=== PATIENT | female | born 1990 | race Caucasian/White ===

== ENCOUNTER 2016-11-14 19:48 | Emergency (ER) | payer SELFPAY ==
[2016-11-14 20:00] VITALS: BP 119/80; PULSE 83; TEMP 98; BMI 25.7
--- NOTE | 2016-11-14 20:19 | PDOC ---
History of Present Illness - General History Source: Patient Exam Limitations: No Limitations - History of Present Illness Initial Comments: 11/14/16 20:27 The patient is a 26 year old female with no significant pas medical history who presents to the ED s/p right knee injury earlier today. The patient reports she was jumping on a trampoline in a trampoline park in [place] when her right knee snapped. The patient states she felt her right knee pop out and pop in again . Patient now comes into the ED with complaint of right thigh pain radiating to her right knee. Patient states her last menstrual period was on October 20. Patient has the control implant. Denies fevers or chills. Denies dysuria or changes in urinary output. Denies chest pain or shortness of breath. Denies any other symptoms. Surgical hx: x 2 <Timmy Bautista - Last Filed: 11/14/16 20:27> <Erin Elmore - Last Filed: 11/15/16 03:55> - General Chief Complaint: Injury Stated Complaint: INJURY Time Seen by Provider: 11/14/16 20:09 Past History <Timmy Bautista - Last Filed: 11/14/16 20:27> - Past Medical History Asthma: No Cancer: No Cardiac Disorders: No Diabetes: No HTN: No Seizures: No Thyroid Disease: No - Psycho/Social/Smoking Cessation Hx Anxiety: No Suicidal Ideation: No Smoking History: Never smoked Have you smoked in the past 12 months: No Hx Alcohol Use: No Drug/Substance Use Hx: No Substance Use Type: None Hx Substance Use Treatment: No <Erin Elmore - Last Filed: 11/15/16 03:55> - Past Medical History Allergies/Adverse Reactions: Allergies Allergy/AdvReac Type Severity Reaction Status Date / Time No Known Allergies Allergy Verified 11/14/16 19:59 Home Medications: Ambulatory Orders NK [No Known Home Medication] 11/14/16 Review of Systems - Review of Systems Able to Perform ROS?: Yes Comments:: 11/14/16 20:27 CONSTITUTIONAL: Absent: fever, chills, diaphoresis, generalized weakness, malaise, loss of appetite HEENT: Absent: rhinorrhea, nasal congestion, throat pain, throat swelling, difficulty swallowing, mouth swelling, ear pain, eye pain, visual Changes CARDIOVASCULAR: Absent: chest pain, syncope, palpitations, irregular heart rate, lightheadedness , peripheral edema RESPIRATORY: Absent: cough, shortness of breath, dyspnea with exertion, orthopnea, wheezing, stridor, hemoptysis GASTROINTESTINAL: Absent: abdominal pain, abdominal distension, nausea, vomiting, diarrhea, constipation, melena, hematochezia GENITOURINARY: Absent: dysuria, frequency, urgency, hesitancy, hematuria, flank pain, genital pain MUSCULOSKELETAL: + right knee injury SKIN: Absent: rash, itching, pallor HEMATOLOGIC/IMMUNOLOGIC: Absent: easy bleeding, easy bruising, lymphadenopathy, frequent infections ENDOCRINE: Absent: unexplained weight gain, unexplained weight loss, heat intolerance, cold intolerance NEUROLOGIC: Absent: headache, focal weakness or paresthesias, dizziness, unsteady gait, seizure, mental status changes, bladder or bowel incontinence PSYCHIATRIC: Absent: anxiety, depression, suicidal or homicidal ideation, hallucinations. All Other Systems: Reviewed and Negative <Timmy Bautista - Last Filed: 11/14/16 20:27> *Physical Exam - Vital Signs Last Vital Signs Temp Pulse Resp BP Pulse Ox 98 F 83 18 119/80 99 11/14/16 19:57 11/14/16 19:57 11/14/16 19:57 11/14/16 19:57 11/14/16 19:57 - Physical Exam Comments: 11/14/16 20:27 GENERAL: Well developed, well nourished. Awake and alert. No acute distress. HEENT: Normocephalic, atraumatic. PERRLA, EOMI. No conjunctival pallor. Sclera are non- icteric. Moist mucous membranes. Oropharynx is clear. NECK: Supple. Full ROM. No JVD. Carotid pulses 2+ and symmetric, without bruits. No thyromegaly. NCo lymphadenopathy. CARDIOVASCULAR: Regular rate and rhythm. No murmurs, rubs, or gallops. Distal pulses are 2+ and symmetric. PULMONARY: No evidence of respiratory distress. Lungs clear to auscultation bilaterally. No wheezing, rales or rhonchi. ABDOMINAL: Soft. Non-tender. Non-distended. No rebound or guarding. No organomegaly. Normoactive bowel sounds. MUSCULOSKELETAL Normal range of motion at all joints. No bony deformities or tenderness. No CVA tenderness. EXTREMITIES:+ More ligament laxity at the anterior drawer on the right knee. No cyanosis. No clubbing. No edema. No calf tenderness. SKIN: Warm and dry. Normal capillary refill. No rashes. No jaundice. NEUROLOGICAL: Alert, awake, appropriate. Cranial nerves 2-12 intact. No deficits to light touch and temperature in face, upper extremities and lower extremities. No motor deficits in the in face, upper extremities and lower extremities. Normoreflexic in the upper and lower extremities. Normal speech. Toes are down- going bilaterally. Gait is normal without ataxia. PSYCHIATRIC: Cooperative. Good eye contact. Appropriate mood and affect. <Timmy Bautista - Last Filed: 11/14/16 20:27> - Vital Signs Last Vital Signs Temp Pulse Resp BP Pulse Ox 98 F 83 18 119/80 99 11/14/16 19:57 11/14/16 19:57 11/14/16 19:57 11/14/16 19:57 11/14/16 19:57 <Erin Elmore - Last Filed: 11/15/16 03:55> ED Treatment Course - Medications Given in the ED: ED Medications Discontinued Medications Generic Name Dose Route Start Last Admin Trade Name Freq PRN Reason Stop Dose Admin Ibuprofen 600 mg 11/14/16 20:20 11/14/16 20:21 Motrin - PO 11/14/16 20:21 600 mg ONCE ONE Administration <Timmy Bautista - Last Filed: 11/14/16 20:27> - RADIOLOGY Radiology Studies Ordered: Category Date Time Status KNEE 2 POS-RIGHT [RAD] Stat Radiology 11/14/16 20:09 Ordered <Erin Elmore - Last Filed: 11/15/16 03:55> Medical Decision Making - Medical Decision Making 11/15/16 03:53 [place] [employer] [place] and injured her right knee, She heard a pop. She has no swelling. XR femur and knee on the right are normal. Pt has a slightly looser anterior drawer test on the right than on the left. Pt will be placed in a knee immobilizer and she will be referred to [facility] for follow up. Diagnosis: knee sprain <Erin Elmore - Last Filed: 11/15/16 03:55> *DC/Admit/Observation/Transfer - Attestations Scribe Attestion: 06/10/17 20:27 Documentation prepared by Timmy Bautista, acting as medical technologist microbiology for Erin Elmore MD <Timmy Bautista - Last Filed: 11/14/16 20:27> - Discharge Dispostion Admit: No <Erin Elmore - Last Filed: 11/15/16 03:55> Diagnosis at time of Disposition: Knee buckling - Discharge Dispostion Disposition: HOME Condition at time of disposition: Stable - Referrals Referrals: Kylah Skelton MD [Primary Care Provider] - Nevilel Delaney MD [Staff Physician] - - Patient Instructions Printed Discharge Instructions: Knee Sprain Additional Instructions: Motrin Over the Counter for pain
[2016-11-14] MEDS ORDERED: IBUPROFEN 600 MG TABLET (FP) PO ONE ×2 (20:20→20:23)
== END 2016-11-14 22:00 | disposition home or self-care (01) ==
LOC: JERFT 19:48 → JER 19:48
PROC: 2W3LX1Z Immobilization of Right Lower Extremity using Splint (ICD-10-PCS; principal; 2016-11-14)
DX: M62.81 Muscle weakness (generalized) (principal); X58.XXXA Exposure to other specified factors, initial encounter; Y93.44 Activity, trampolining; Y92.9 Unspecified place or not applicable
CPT/HCPCS: 73552-TC-RT; 73560-TC-RT; 99281-25

== ENCOUNTER 2021-11-08 12:19 | Emergency (ER) | payer OTHER ==
[2021-11-08 12:44] VITALS: BP 126/98; PULSE 94; TEMP 98.1; BMI 27.4
[2021-11-08] MEDS ORDERED: ONDANSETRON *ODT* 4 MG TABLET SL ONE (14:00)
[2021-11-08] MEDS ORDERED: MAG HYDROX/AL HYDROX/SIMETH 30 ML UNIT-DOSE CUP PO ONE (14:00)
[2021-11-08] MEDS ORDERED: FAMOTIDINE 20 MG TABLET PO ONE (14:00)
[2021-11-08] MEDS ORDERED: MAG HYDROX/AL HYDROX/SIMETH 30 ML UNIT-DOSE CUP ONE (14:17)
[2021-11-08] MEDS ORDERED: FAMOTIDINE 20 MG TABLET ONE (14:17)
[2021-11-08] MEDS ORDERED: ONDANSETRON *ODT* 4 MG TABLET ONE (14:17)
[2021-11-08 15:14] LABS: HEMATOCRIT 36.5 % (32.4-45.2); HEMOGLOBIN 12.3 GM/dL (10.7-15.3); MCH 29.9 pg (25.7-33.7); MCHC 33.7 g/dl (32.0-36.0); MEAN CELL VOLUME 88.8 fl (80-96); MEAN PLT VOLUME 9.4 fl (7.5-11.1); PLATELET COUNT 269 10^3/uL (134-434); RBC 4.11 M/mm3 (3.60-5.2); RDW 13.7 % (11.6-15.6); WHITE BLOOD COUNT 10.8 K/mm3 (4.0-10.0)
[2021-11-08 15:51] LABS: ALBUMIN 4.1 g/dl (3.4-5.0); BLOOD UREA NITROGEN 14.8 mg/dL (7-18)
[2021-11-08 15:54] LABS: CREATININE 0.6 mg/dL (0.55-1.3)
[2021-11-08 15:56] LABS: BILIRUBIN,TOTAL 0.4 mg/dL (0.2-1)
[2021-11-08 15:57] LABS: TOT PROT 7.9 g/dl (6.4-8.2)
== END 2021-11-08 16:13 | disposition home or self-care (01) ==
LOC: JERFT 12:19
DX: R10.13 Epigastric pain (principal); K29.20 Alcoholic gastritis without bleeding
CPT/HCPCS: 36415; 76705-TC; 80053; 83690; 84703; 85027; 99284-25; Q0162